=== PATIENT | female | born 1965 | race Hispanic/Latino ===

== ENCOUNTER 2018-04-21 12:59 | Emergency (ER) | payer MEDICAID ==
[~2018-04-21] VITALS: Ht 157.5 cm; Wt 62.6 kg
[2018-04-21] MEDS ORDERED: VENTOLIN HFA18 GM INH (13:14)
[2018-04-21] MEDS ORDERED: ZYRTEC10 MG PO (16:39)
[2018-04-21] MEDS ORDERED: PREDNISONE50 MG PO (16:39)
[2018-04-21] MEDS ORDERED: PEPCID40 MG PO (16:39)
== END 2018-04-21 17:22 | disposition home or self-care (01) ==
LOC: ED 12:59
DX: T78.3XXA Angioneurotic edema, initial encounter (principal); T78.2XXA Anaphylactic shock, unspecified, initial encounter; Z91.018 Allergy to other foods; Z91.011 Allergy to milk products
CPT/HCPCS: 80053; 85025; 94640; 96361; 96372; 96374; 96375; 99284; J1100; J1200; J2405; J7030